=== PATIENT | male | born 1995 | race Caucasian/White ===

== ENCOUNTER 2020-12-28 20:33 | Emergency (ER) | payer BC ==
[~2020-12-28 20:33] MED LIST: BENADRYL 25MG C25 MG PO; PEPCID20 MG PO; PREDNISONE 50 M50 MG PO; ZANTAC150 MG PO
[2020-12-28 21:42] LABS: HEMOGLOBIN 15.2 gm/dl (14.0-17.5); RED BLOOD COUNT 4.8 M/UL (4.20-5.50); WHITE BLOOD COUNT 13.9 K/UL (4.5-11.0)
[2020-12-28 22:10] LABS: BUN/CREATININE RATIO 15 (0-10)
== END 2020-12-28 22:36 | disposition home or self-care (01) ==
LOC: ER1 20:33
PROVIDERS: Physician Assistant
DX: M25.521 Pain in right elbow (principal)
CPT/HCPCS: 73080; 80053; 85025; 85652; 86140; 87040; 96374; 99283; J1885